=== PATIENT | male | born 1965 | race Caucasian/White ===

== ENCOUNTER 2021-05-08 11:44 | Day surgery (SDC) | payer MEDICARE ==
[2021-05-06 16:28] LABS: BASOPHILS # (AUTO) 0.1 X10'3 (0-0.2); BASOPHILS % (AUTO) 0.8 % (0-1); EOSINOPHILS # (AUTO) 0.1 X10'3 (0-0.9); EOSINOPHILS % (AUTO) 1.5 % (0-6); HEMOGLOBIN 12.4 g/dl (14.0-17.9); LYMPHOCYTES # (AUTO) 2.4 X10'3 (1.1-4.8); LYMPHOCYTES % (AUTO) 30.2 % (21-51); MEAN CORPUSCULAR HEMOGLOBIN 30.4 PG (27.0-31.0); MEAN CORPUSCULAR HGB CONC 33.5 g/dL (33.0-36.5); MEAN CORPUSCULAR VOLUME 90.5 FL (78-98); MEAN PLATELET VOLUME 8.2 FL (7.4-10.4); MONOCYTES # (AUTO) 0.6 X10'3 (0-0.9); MONOCYTES % (AUTO) 7.7 % (2-12); NEUTROPHILS # (AUTO) 4.8 X10'3 (1.8-7.7); NEUTROPHILS % (AUTO) 59.8 % (42-75); PLATELET COUNT 324 X10'3 (140-440); RED BLOOD COUNT 4.08 X10'6 (4.70-6.10); RED CELL DISTRIBUTION WIDTH 14.2 % (11.5-14.5); WHITE BLOOD COUNT 8.1 X10'3 (4.5-11.0)
[2021-05-06 16:45] LABS: ALANINE AMINOTRANSFERASE 29 U/L (12-78); ALBUMIN 3.7 G/DL (3.4-5.0); ALKALINE PHOSPHATASE 91 IU/L (46-116); ANION GAP 9 (8-16); ASPARTATE AMINO TRANSFERASE 20 U/L (10-37); BILIRUBIN,TOTAL 0.3 MG/DL (0.1-1.0); BLOOD UREA NITROGEN 19 MG/DL (7-18); BUN/CREATININE RATIO 17.3 (5.4-32.0); CALCIUM 8.6 MG/DL (8.5-10.1); CHLORIDE 109 MMOL/L (99-107); GLUCOSE 87 MG/DL (70-104); POTASSIUM 4.2 MMOL/L (3.5-5.1); SODIUM 145 MMOL/L (135-145); TOTAL CARBON DIOXIDE 26.7 MMOL/L (24-32); TOTAL PROTEIN 7.5 G/DL (6.4-8.2); eGFR 69 ML/MIN
[2021-05-06 17:07] LABS: PARTIAL THROMBOPLASTIN TIME 29 SECONDS (22-32)
[~2021-05-08] VITALS: Ht 182.9 cm; Wt 88.0 kg
[2021-05-08] VITALS (10 sets, daily range): BP systolic 112–151; BP diastolic 72–98
[2021-05-08] MEDS ORDERED: diphenhydrAMINE 25mg capsule PO PRN (12:05)
[2021-05-08] MEDS ORDERED: nitroGLYCERIN 0.4mg SUBLingual tab SL PRN (12:05)
[2021-05-08] MEDS ORDERED: LORazepam 0.5 MG tablet PO PRN (12:05)
[2021-05-08] MEDS ORDERED: normal saline 1,000 ML IV SCH (12:05)
[2021-05-08] MEDS ORDERED: NITR0.4T48 SL (12:11)
[2021-05-08] MEDS ORDERED: AMLO5TAB16 PO (12:11)
[2021-05-08] MEDS ORDERED: LISI40TA13 PO (12:11)
[2021-05-08] MEDS ORDERED: ATOR20TA66 PO (12:11)
[2021-05-08] MEDS ORDERED: ASPI-1265 PO (12:13)
[2021-05-08] MEDS ORDERED: ACET-2319 PO (12:13)
[2021-05-08] MEDS ORDERED: fentaNYL/PF 50MCG/1 ML 2ML syringe ONE ×2 (13:38→14:22)
[2021-05-08] MEDS ORDERED: LIDOcaine 1% (10mg/ml)w/preservative injection 20ml MDV ONE (13:39)
[2021-05-08] MEDS ORDERED: midazolam 1 mg/ML 2ml injection ONE ×2 (13:39→14:02)
[2021-05-08] MEDS ORDERED: iohexol 350MG/ML 100ml bottle IV ONE (13:39)
[2021-05-08] MEDS ORDERED: iohexol 350 MG/ML 50ML vial IV ONE (13:39)
[2021-05-08] MEDS ORDERED: OXAZEpam 15mg capsule PO PRN (16:50)
[2021-05-08] MEDS ORDERED: ondansetron/PF 4mg/2ml inj IV PRN (16:50)
[2021-05-08] MEDS ORDERED: HYDROcodone/acetaminophen 5mg/325mg tablet PO PRN (16:50)
[2021-05-08] MEDS ORDERED: HYDROcodone/acetaminophen 10/325mg tab PO PRN (16:50)
[2021-05-08] MEDS ORDERED: proCHLORperazine 10 MG/2 ml inj IV PRN (16:50)
== END 2021-05-08 19:55 | disposition home or self-care (01) ==
LOC: SSTAY O 11:44
PROVIDERS: ATTEND Internal Medicine Cardiovascular Disease
DX: R94.39 Abnormal result of other cardiovascular function study (principal); I25.119 Atherosclerotic heart disease of native coronary artery with unspecified angina pectoris; I25.82 Chronic total occlusion of coronary artery; F41.0 Panic disorder [episodic paroxysmal anxiety]; G35 Multiple sclerosis; I48.0 Paroxysmal atrial fibrillation; I10 Essential (primary) hypertension; E78.5 Hyperlipidemia, unspecified; D64.9 Anemia, unspecified; J44.9 Chronic obstructive pulmonary disease, unspecified; Z79.01 Long term (current) use of anticoagulants; Z87.891 Personal history of nicotine dependence; Z79.899 Other long term (current) drug therapy; Z95.1 Presence of aortocoronary bypass graft; Z96.611 Presence of right artificial shoulder joint
CPT/HCPCS: 36415; 71046; 80053; 85025; 85610; 85730; 93005; 93459; 99152; C1760; C1769; J1644; J2001; J2250; J3010; J7030; Q0163; Q9967; A4620; A6258